=== PATIENT | female | born 1995 | race African-American/Black ===

== ENCOUNTER 2020-06-02 15:27 | Emergency (ER) | payer MEDICAID ==
[~2020-06-02] VITALS: Ht 157.5 cm; Wt 60.0 kg
[2020-06-02 19:33] LABS: CHLORIDE 103 mEq/L (98-107)
[2020-06-02 19:58] LABS: B-HCG QUANTITATIVE 69749 mIU/mL (<3)
[2020-06-02 22:39] VITALS: BP 124/69
== END 2020-06-02 22:41 | disposition home or self-care (01) ==
LOC: ER 15:27
DX: O20.8 Other hemorrhage in early pregnancy (principal); Z3A.01 Less than 8 weeks gestation of pregnancy
CPT/HCPCS: 36415; 76801; 80053; 81025; 84702; 99284

== ENCOUNTER 2020-09-08 03:51 | Emergency (ER) | payer MEDICAID ==
[~2020-09-08] VITALS: Ht 165.1 cm; Wt 55.0 kg
[2020-09-08] MEDS ORDERED: FAMOTIDINE 20MG/2ML VIAL IV STA (04:06)
[2020-09-08] MEDS ORDERED: ONDANSETRON HCL 4MG/2ML INJ IV ONE (04:15)
[2020-09-08] MEDS ORDERED: VISCOUS LIDOCAINE 2% 15 ML UDC MM STA (04:18)
[2020-09-08] MEDS ORDERED: MAGNESIUM/ALUMINUM HYDROXIDE/SIMETHICONE 30ML UDC PO ONE (04:30)
[2020-09-08 04:33] LABS: BASOPHILS % 0.3 % (0.0-2.0); EOSINOPHILS % 0.7 % (0.0-5.0); HEMATOCRIT. 32.2 % (36.0-48.0); HEMOGLOBIN. 11.1 g/dL (12.0-16.0); LYMPHOCYTES % 16.3 % (20.0-50.0); MEAN CORPUSCULAR HEMOGLOBIN 33.5 pg (28.0-32.0); MEAN CORPUSCULAR VOLUME 97.2 fL (81.0-99.0); MONOCYTES % 7.7 % (2.0-8.0); PLATELET 158 x1000/uL (130-400); RED BLOOD CELL COUNT 3.32 mill/uL (4.2-5.4); RED CELL DISTRIBUTION WIDTH 13.4 % (11.6-14.6)
[2020-09-08 04:42] LABS: CHLORIDE 107 mEq/L (98-107)
[2020-09-08 05:09] LABS: CLARITY URINE TURBID (CLEAR); COLOR URINE YELLOW (YELLOW); KETONES URINE TRACE (NEGATIVE); LEUKOCYTE ESTERASE URINE 3+ (NEGATIVE); NITRITE URINE NEGATIVE (NEGATIVE); OCCULT BLOOD URINE NEGATIVE (NEGATIVE); PROTEIN URINE TRACE (NEGATIVE); UROBILINOGEN URINE 0.2 E.U./dL (0.2-1.0)
[2020-09-08] MEDS ORDERED: CEPH500T MT (05:21)
[2020-09-08] MEDS ORDERED: CEPHALEXIN 250MG CAPSULE PO NR (05:30)
[2020-09-08 06:06] VITALS: BP 104/78
== END 2020-09-08 06:05 | disposition home or self-care (01) ==
LOC: ER 03:51
DX: N39.0 Urinary tract infection, site not specified (principal); R11.2 Nausea with vomiting, unspecified; K29.70 Gastritis, unspecified, without bleeding
CPT/HCPCS: 36415; 80053; 81003; 83690; 85025; 87086; 93005; 96374; 96375; 99284; J2405; J3490

== ENCOUNTER 2024-07-25 19:40 | Emergency (ER) | payer MEDICAID ==
[~2024-07-25] VITALS: Ht 165.1 cm; Wt 55.0 kg
[~2024-07-25 19:40] MED LIST: CEPH500T MT
[2024-07-25 19:59] VITALS: BP 118/74; PULSE 73; RESP 18; TEMP 36.7; O2SAT 100
== END 2024-07-25 23:23 | disposition left against medical advice (07) ==
LOC: ER 19:40
DX: R42 Dizziness and giddiness (principal); Z98.890 Other specified postprocedural states; Z53.21 Procedure and treatment not carried out due to patient leaving prior to being seen by health care provider